=== PATIENT | male | born 1945 | race Caucasian/White ===

== ENCOUNTER 2019-03-03 17:57 | Emergency (ER) | payer BC ==
[~2019-03-03] VITALS: Ht 175.3 cm; Wt 77.1 kg
[2019-03-03] MEDS ORDERED: CORTISPORIN OTI10 M2 OTIC (18:13)
[2019-03-03] MEDS ORDERED: AMOXICILLIN 50500 MG PO (18:13)
[2019-03-03 18:21] VITALS: BP 139/79
[2019-03-03] MEDS ORDERED: VITAMIN D2000 UNIT PO (18:59)
[2019-03-03] MEDS ORDERED: SIMVASTATIN10 MG PO (18:59)
[2019-03-03] MEDS ORDERED: CENTRUM SILVER1 EAC4 PO (18:59)
[2019-03-03] MEDS ORDERED: BAYER CHEWABLE81 MG PO (18:59)
[2019-03-03] MEDS ORDERED: TOPROL XL25 MG PO (19:00)
[2019-03-03] MEDS ORDERED: POTASSIUM GLUC500 MG PO (19:00)
[2019-03-03] MEDS ORDERED: GABAPENTIN 100100 MG PO (19:00)
== END 2019-03-03 18:21 | disposition home or self-care (01) ==
LOC: M.ERS 17:57
DX: H66.92 Otitis media, unspecified, left ear (principal)